=== PATIENT | female | born 1995 | race Caucasian/White ===

== ENCOUNTER 2024-07-06 23:59 | Emergency (ER) | payer OTHER, SELFPAY ==
[2024-07-07 00:02] VITALS: BP 138/98
--- NOTE | 2024-07-07 00:37 | ED.GENMED ---
History of Present Illness
<Gatito Aquino MD, Resident - Last Filed: 07/07/24 01:03>
General
Chief Complaint: Musculo-Skeletal Complaint
Time Seen by Provider: 07/07/24 00:21
History of Present Illness
History of Present Illness:
This is a 28-year-old female who presents to the ED complaining of right knee pain after she slipped and fell on her right knee this evening. Patient reports she fell flat on her knee, with her right knee extended. She did not hear a pop, she was
able to bear weight on the knee immediately. She reports the pain is a 5 out of 10. Pain is prominent on the anterior portion of the knee. She can bear weight on bilateral extremities and was able to walk from the car to the ED. She denies
fever, chills
Past History
<Gatito Aquino MD, Resident - Last Filed: 07/07/24 01:03>
Past History
ED Past Medical History: Psychiatric and Other (Headaches)
ED Past Surgical History: Other (wisdom teeth removal)
Review of Systems
<Gatito Aquino MD, Resident - Last Filed: 07/07/24 01:03>
Review of Systems
All Other Systems: ROS reviewed and negative except as documented in HPI and ROS
Phy Exam
<Gatito Aquino MD, Resident - Last Filed: 07/07/24 01:03>
General Physical Exam
General Presentation: well appearing and no apparent distress
General Skin: warm and dry
Cardiovascular Exam
Cardiovascular Exam: regular rate/rhythm and no edema
Pulmonary Exam
Pulmonary Exam: lungs clear and no respiratory distress
Gastrointestinal Exam
Gastrointestinal Exam: normal bowel sounds, non tender and soft
Musculoskeletal Exam
Musculoskeletal Exam: other (On inspection- mild bruising on the right knee, mild tenderness to palpation of right knee, no effusion, no cyst. Active and passive range of motion, sensation b/l extremities intact.)
Psychiatric Exam
Psychiatric Exam: normal mood/affect
Course
<Gatito Aquino MD, Resident - Last Filed: 07/07/24 01:03>
Orders/Labs/Results
Orders:
Orders
07/07/24 00:08
Knee, Right 4 or More Views [CR Knee- Right 4 Or More View*] Urgent
Comment:
Reason For Exam: fell onto R knee
07/07/24 00:47
Ibuprofen [Motrin] 600 mg PO NOW STA
Vital Signs
Initial and Last Documented VS:
Initial Vital Signs
Temp Pulse Resp BP Pulse Ox
99.0 F 77 20 138/98 99
07/07/24 00:02 07/07/24 00:02 07/07/24 00:02 07/07/24 00:02 07/07/24 00:02
Last Documented Vital Signs
Temp Pulse Resp BP Pulse Ox
99.0 F 77 20 138/98 99
07/07/24 00:02 07/07/24 00:02 07/07/24 00:02 07/07/24 00:02 07/07/24 00:02
<Junie Nance, DO - Last Filed: 07/07/24 00:56>
Orders/Labs/Results
Orders:
Orders
07/07/24 00:08
Knee, Right 4 or More Views [CR Knee- Right 4 Or More View*] Urgent
Comment:
Reason For Exam: fell onto R knee
07/07/24 00:47
Ibuprofen [Motrin] 600 mg PO NOW STA
Vital Signs
Initial and Last Documented VS:
Initial Vital Signs
Temp Pulse Resp BP Pulse Ox
99.0 F 77 20 138/98 99
07/07/24 00:02 07/07/24 00:02 07/07/24 00:02 07/07/24 00:02 07/07/24 00:02
Last Documented Vital Signs
Temp Pulse Resp BP Pulse Ox
99.0 F 77 20 138/98 99
07/07/24 00:02 07/07/24 00:02 07/07/24 00:02 07/07/24 00:02 07/07/24 00:02
<Gatito Aquino MD, Resident - Last Filed: 07/07/24 01:03>
MDM/Problems Addressed
MDM/Problems Addressed:
16-year-old female presents today ER complaining of right knee pain after she slipped and fell on the right knee. Patient is well-appearing, in no acute distress. Can bear weight on extremities. Mild tenderness to palpation of right knee. No
effusion, no cyst. active and passive range of motion intact and can be performed. Will evaluate with x-ray of the knee. Ibuprofen 600 mg now for pain.
<Gatito Aquino MD, Resident - Last Filed: 07/07/24 01:03>
*Critical Care Note
Total Time (30-74mins, 75-104mins- exclusive of procedures): Not Applicable
ED Attending Note
<Gatito Aquino MD, Resident - Last Filed: 07/07/24 01:03>
-
Portions of this chart may have been created with voice recognition software.� Occasional wrong word or��sound alike� substitutions may have occurred due to the inherent limitations of voice recognition software.
<Junie Nance DO - Last Filed: 07/07/24 00:56>
ED Attending Note
Patient seen and examined by attending physician: Yes
I performed a history and physical exam of patient and discussed management with resident, I reviewed resident's note and agree with documented findings and plan of care.: Yes
ED Attending Note:
28-year-old overweight female presents after suffering a fall landing on her knees this evening. Complains of pain right anterior knee. Has been ambulatory since incident. No weakness or numbness, no abdominal or back pain.
28-year-old female appears her stated age, bright and alert, pleasant, appears in no acute distress.
Right knee has very mild early ecchymosis, mild soft tissue swelling anterolateral aspect with mild to moderate local tenderness to palpation. No palpable effusion. Full knee range of motion without difficulty nor palpable crepitus. No laxity.
Peripheral pulses full and equal bilaterally. Sensation and strength intact.
Concern for right knee contusion. Concern for occult fracture. Will check x-ray.
Will medicate for pain with ibuprofen. Will initiate ice, elevation.
00:55
X-ray is unremarkable, no evidence of fracture. Perhaps mild early DJD.
Will place an Nayan wrap. Will prescribe ibuprofen for as needed pain.
Recommend ice, elevation, rest over the next several days.
Patient works at a [employer], is planning to work today, Tuesday, July 07 but has already called out of work. Her next scheduled date of work is July 11. A work note has been provided to be out of work today.
Recommend follow-up with PCP for recheck.
Discharge Plan
Departure
Patient Disposition: Home (Routine Discharge)
Date of Disposition: 07/07/24
Time of Disposition: 00:54
Patient with high blood pressure during this ER visit?: No
Discharge Problem:
Acute pain of right knee
Prescriptions:
New
ibuprofen 800 mg tablet
800 mg PO Q8H PRN (Reason: Pain) Qty: 7 0RF
Stand Alone Forms: Return to Work
Interventions
Interventions:
*Risk Screen - Suicide Last Done: 07/07/24 00:02
*General Assessment Last Done: 07/07/24 00:55
*Neglect/Abuse Screening Last Done: 07/07/24 00:55
*ED- Fall Risk Assessment Last Done: 07/07/24 00:55
*ED COVID-19 Vaccine History Last Done: 07/07/24 00:55
ED-Musculoskeletal Assessment Last Done: 07/07/24 00:55
Discharge Date and Time
Print Language: HUNGARIAN
[2024-07-07] MEDS: MOTRIN 600 MG PO (00:51)
--- NOTE | 2024-07-07 00:56 | EDRN ---
Ice pack provided and chase wrap around knee
== END 2024-07-07 01:06 | disposition home or self-care (01) ==
LOC: EMR 23:59
PROVIDERS: EMERGENCY PHYSICIAN Emergency Medicine
DX: M25.561 Pain in right knee (principal); W01.0XXA Fall on same level from slipping, tripping and stumbling without subsequent striking against object, initial encounter
CPT/HCPCS: 99283; 73564; J1335

== ENCOUNTER 2024-07-27 10:25 | Emergency (ER) | payer OTHER, SELFPAY ==
[2024-07-27 10:29] VITALS: BP 143/92
--- NOTE | 2024-07-27 11:35 | ED.GENMED ---
History of Present Illness
General
Chief Complaint: Musculo-Skeletal Complaint
Source: patient
Exam Limitations: none
Time Seen by Provider: 07/27/24 11:28
History of Present Illness
History of Present Illness:
28yoF with a history of asthma, PCOS, OCD, and depression presenting for evaluation of atraumatic neck pain. Patient went to bed feeling normal last night. She woke up in the middle of the night with pain in the left side of her neck. The pain is
described as sharp. Pain radiates to the left shoulder region. The pain is worse with movement of the neck. She has not taken anything [id number] for her symptoms. She denies any chest pain or shortness of breath.
Past History
Past History
ED Past Medical History: Psychiatric and Other (Headaches)
ED Past Surgical History: Other (wisdom teeth removal)
Phy Exam
General Physical Exam
General Presentation: well appearing and no apparent distress
General age: appears stated age
General Skin: warm and dry
General Habitus: normal
General Mental: alert
ENT Exam
ENT Exam: normocephalic and other (+Tenderness along the cervical portion of the L trapezius muscle. No skin changes. No nuchal rigidity. No carotid bruit.)
Cardiovascular Exam
Cardiovascular Exam: regular rate/rhythm, no murmur and normal peripheral pulses (2+ radial pulses bilaterally.)
Pulmonary Exam
Pulmonary Exam: lungs clear, no respiratory distress, no rales, no crackles and no rhonchi
Neurological Exam
Neurological Exam: alert
Ron Coma Scale
Eye Opening: Spontaneous
Verbal Response: Oriented
Motor Response: Obeys Commands
GCS Total Score: 15
Musculoskeletal Exam
Musculoskeletal Exam: other (L shoulder is normal to inspection. ROM is normal.)
Skin Exam
Skin Exam: warm/dry
Psychiatric Exam
Psychiatric Exam: normal mood/affect
Course
Orders/Labs/Results
Orders:
Orders
07/27/24 10:32
EKG [Electrocardiogram (*1)] Urgent
Reason for Study: Chest Pain
EKG- Treatment ONCE
07/27/24 11:49
Acetaminophen [Tylenol] 1,000 mg PO NOW STA
Ketorolac [Toradol] 30 mg IM NOW STA
Lidocaine [Lidocaine 4% Patch] 1 patch TOPICAL NOW STA
Apply Lidocaine patch(s) to:: L neck
Vital Signs
Initial and Last Documented VS:
Initial Vital Signs
Temp Pulse Resp BP Pulse Ox
98.3 F 78 16 143/92 96
07/27/24 10:07/27/24 10:07/27/24 10:07/27/24 10:07/27/24 10:29
Last Documented Vital Signs
Temp Pulse Resp BP Pulse Ox
98.3 F 78 16 143/92 96
07/27/24 10:07/27/24 10:07/27/24 10:07/27/24 10:07/27/24 10:29
MDM/Problems Addressed
Differential Diagnosis Includes:
28yoF here with L neck pain that she woke with. No reported trauma. Worse with movement. No CP/SOB. VSS. She is well appearing in no distress. There is reproducible tenderness to the cervical portion of the L trapezius muscle on exam. No meningismus
noted. Presentation consistent with muscular strain. Doubt cardiac etiology given age and presentation.
EKG obtained in triage which appears normal. No indication for labs/imaging at this time. Will treat symptomatically. IM Toradol, Tylenol, and lidocaine patch ordered. Supportive care discussed and prescription for Robaxin provided. Advised f/u with
PCP and ED return precautions reviewed. Patient in agreement with plan and was discharged in stable condition.
*EKG
Interpreted by ED Provider?: Yes
EKG Intrepretation Date: 07/27/24
Heart Rate: 70
Rate: normal
Rhythm: sinus
[place]: normal axis
Interval: normal interval
QRS Pattern: normal QRS
Ischemia: no ischemia
*Critical Care Note
Total Time (30-74mins, 75-104mins- exclusive of procedures): Not Applicable
ED Attending Note
-
Portions of this chart may have been created with voice recognition software.� Occasional wrong word or��sound alike� substitutions may have occurred due to the inherent limitations of voice recognition software.
Discharge Plan
Departure
Patient Disposition: Home (Routine Discharge)
Date of Disposition: 07/27/24
Time of Disposition: 11:51
Patient with high blood pressure during this ER visit?: Yes
Discharge Problem:
Neck pain on left side
Instructions: Muscle, joint, and bone pain - Discharge instructions
Prescriptions:
New
methocarbamol 750 mg tablet
750 mg PO Q8H PRN (Reason: muscle spasms) Qty: 20 0RF
No Action
ibuprofen 800 mg tablet
800 mg PO Q8H PRN (Reason: Pain) Qty: 7 0RF
Referrals:
Yulisa Youssef, [Family Provider] -
Stand Alone Forms: Return to Work
Activity Restrictions/Additional Instructions:
Apply heat to affected area. Take Tylenol 650mg and ibuprofen 600mg every 6 hours as needed for pain. Use lidocaine patches daily (12 hours on, 12 hours off). Take Robaxin (muscle relaxer) as needed for spasms.
Please follow-up with your family doctor. Return to the ER with any new or worsening symptoms.
Interventions
Interventions:
*Risk Screen - Suicide Last Done: 07/27/24 10:29
*General Assessment Last Done: 07/27/24 12:15
*Neglect/Abuse Screening Last Done: 07/27/24 10:29
*ED- Fall Risk Assessment Last Done: 07/27/24 12:15
*ED COVID-19 Vaccine History Last Done: 07/27/24 12:15
ED-Musculoskeletal Assessment Last Done: 07/27/24 12:15
Discharge Date and Time
Print Language: SETSWA[place]
[2024-07-27] MEDS: TYLENOL 1000 MG PO (12:08)
[2024-07-27] MEDS: TORADOL 30 MG IM (12:09)
[2024-07-27] MEDS: LIDOCAINE 4% PATCH 1 PATCH TOPICAL (12:09)
[2024-07-27 12:18] VITALS: BP 104/57
[2024-07-27 12:43] VITALS: BP 104/57
== END 2024-07-27 12:49 | disposition home or self-care (01) ==
LOC: EMR 10:25
PROVIDERS: EMERGENCY PHYSICIAN Emergency Medicine; FAMILY PHYSICIAN Family Medicine
DX: M54.2 Cervicalgia (principal); E28.2 Polycystic ovarian syndrome; F42.9 Obsessive-compulsive disorder, unspecified; R03.0 Elevated blood-pressure reading, without diagnosis of hypertension
CPT/HCPCS: 99284; 96372; 93005